=== PATIENT | female | born 1945 | race Caucasian/White ===

== ENCOUNTER 2021-01-08 09:23 | Outpatient (CLI) | payer OTHER | END 2021-01-08 09:24 | disposition home or self-care (01) | LOC: NUCLEAR 09:23 | PROVIDERS: ATTEND Specialist | DX: I49.8 Other specified cardiac arrhythmias (principal); I50.22 Chronic systolic (congestive) heart failure; I48.0 Paroxysmal atrial fibrillation ==

== ENCOUNTER 2022-04-07 15:52 | Inpatient (IN) | payer OTHER ==
[~2022-04-07] VITALS: Ht 167.6 cm; Wt 77.1 kg
--- NOTE | 2022-04-07 16:17 | NUR ---
SE RECIBE PTE ALERTA Y ORIENTADAX3 EN KARSTEN DE AMBULANCIA REFIERE TENER DOLOR ABDOMINAL, ACOMPANADA DE FAMILAIRES. SE LE REALIZAN S/V SE ENTREVISTA A PTE Y SE ACOMODA EN KARSTEN EN ESPERA DE SEGUIMIENTO CON EN TURNO.
--- NOTE | 2022-04-07 17:09 | NUR ---
SE LE REVISA CANALIZACION A PTE EN MANO DERECHA LA CUAL TIENE UN ANGIO #22 SE LE COLOCA SALINE LOCK Y SE SVEN EN KARSTEN, SE LE COLOCA CANULA NASAL AL .3% L. SE LE REALIZAN MUESTRAS DE LABORATORIO. SE ENVIAN INMEDIATAMENTE. EN ESPERA DE RESULTADOS.
[2022-04-07] MEDS ORDERED: ELIQUIS5 M1 PO (17:24)
== END 2022-04-15 13:36 | disposition designated cancer center or children's hospital (05) | DRG 872 ==
LOC: ER 15:52 → ICU-2 19:31 → MEDJ 19:31 → ICU 04-08 21:00 → MEDJ 04-10 18:41
PROVIDERS: Specialist; ADMIT Internal Medicine; ATTEND Internal Medicine
PROC: 30233N1 Transfusion of Nonautologous Red Blood Cells into Peripheral Vein, Percutaneous Approach (ICD-10-PCS; 2022-04-07)
PROC: B24BYZZ Ultrasonography of Heart with Aorta using Other Contrast (ICD-10-PCS; 2022-04-07)
PROC: BW21ZZZ Computerized Tomography (CT Scan) of Abdomen and Pelvis (ICD-10-PCS; 2022-04-09)
PROC: 4A12X4Z Monitoring of Cardiac Electrical Activity, External Approach (ICD-10-PCS; 2022-04-10)
PROC: 0HB6XZZ Excision of Back Skin, External Approach (ICD-10-PCS; principal; 2022-04-12 09:45)
DX: A41.51 Sepsis due to Escherichia coli [E. coli] (principal); D62 Acute posthemorrhagic anemia; I50.1 Left ventricular failure, unspecified; T84.020A Dislocation of internal right hip prosthesis, initial encounter; A41.81 Sepsis due to Enterococcus; A41.89 Other specified sepsis; I48.91 Unspecified atrial fibrillation; I11.0 Hypertensive heart disease with heart failure; L08.89 Other specified local infections of the skin and subcutaneous tissue; Z96.641 Presence of right artificial hip joint; E66.01 Morbid (severe) obesity due to excess calories; Z68.27 Body mass index [BMI] 27.0-27.9, adult